=== PATIENT | female | born 2000 | race Caucasian/White ===

== ENCOUNTER 2019-11-13 17:10 | Emergency (ER) | payer SELFPAY ==
[~2019-11-13] VITALS: Ht 144.8 cm; Wt 63.5 kg
[2019-11-13 17:25] VITALS: BP 120/72
--- NOTE | 2019-11-13 17:35 | NUR ---
19 YO FEMALE CO COCYX PAIN FOR 1W. STATES THERE IS SWELLING AND SOME BLEEDING BELOW COCYX. PAIN WHEN SITTNG IS 9/10, STABBING PAIN. WHEN STANDING PAIN IS TOLERABLE. PT DENIES ANY TRAUMA OR INJURY. NO MED HX AND NO RX MEDS.
--- NOTE | 2019-11-13 17:57 | NUR ---
JO MURILLO EVALUATING PT AT BEDSIDE
[2019-11-13 18:46] VITALS: BP 120/72
--- NOTE | 2019-11-13 18:46 | NUR ---
Patient discharged with v/s stable. Written and verbal after care instructions given and explained. Patient alert, oriented and verbalized understanding of instructions. Ambulatory with steady gait. All questions addressed prior to discharge. ID band removed. Patient advised to follow up with PMD. Rx of IBUPROFEN AND BACTRIM given. Patient educated on indication of medication including possible reaction and side effects. Opportunity to ask questions provided and answered.
== END 2019-11-13 18:46 | disposition home or self-care (01) ==
LOC: MED 17:10
DX: M53.3 Sacrococcygeal disorders, not elsewhere classified (principal)
CPT/HCPCS: 81025; 99283